=== PATIENT | female | born 1995 | race Caucasian/White ===

== ENCOUNTER 2020-12-06 06:56 | Day surgery (SDC) | payer OTHER ==
[~2020-12-06] VITALS: Ht 154.9 cm; Wt 63.5 kg
--- NOTE | ~2020-12-06 | O ---
[facility] [place] [address] OPERATIVE REPORT Name: LEIGH DAMIAN [place] #: [place] [facility] [place]#: [id number] Admission: 12/06/20 Attend Phys: Martín Swenson MD Discharge: 12/06/20 Date of : 89 Report #: [id number] THIS REPORT FOR: cc: ALEXIS - No family physician/PCP ALEXIS - No family physician/PCP Martín Swenson MD ~ DATE OF SERVICE: 12/06/2020 PREOPERATIVE DIAGNOSES: Nasal septal deformity and turbinate hypertrophy. POSTOPERATIVE DIAGNOSES: Nasal septal deformity and turbinate hypertrophy. PROCEDURES: Nasal septal reconstruction, submucous resection of inferior turbinates with outfracturing. SURGEON: Martín Swenson MD ANESTHESIA: General LMA. INDICATIONS: See H and P. TECHNIQUE: After obtaining the patient's consent, she was brought to the operating suite, appropriate time out was performed. General LMA anesthesia was obtained. The bed was turned 90 degrees. She was placed in a slight head up position. The nose was prepped and draped in the usual sterile fashion. A 6 mL of 1% Xylocaine and 1:100,000 epinephrine was injected in each side of the septum. Later in the case, an additional 2 mL was infiltrated into the submucosal component of each inferior turbinate for a total of 10 of local use. Cottonoids with Afrin were placed on each side of the nose for vasoconstriction of the inferior middle turbinates. A right-sided hemitransfixion was made and elevated submucosal flap on the left side to expose the quadrangular cartilage as well as the anterior portion of the vomer in perpendicular plate. With the substantial deviation of the quadrangular cartilage, I harvested a large piece of quadrangular cartilage, scoring the area with a [place] blade then back elevating the right side with a mucoperichondrial flap. Enough was left anteriorly and superiorly for adequate tip support. The above-mentioned cartilage was then removed. The bony cartilaginous junction was disarticulated superiorly. A small amount of cartilage was off the maxillary crest on the left side, and this was dissected away with use of a D knife and elevated out of the maxillary crest. Small deviations were noted on the inferior portion of the vomer anteriorly, which were removed with Silvino forceps. During dissection, there was a tear in the mucosa on the right side inferiorly, but there were no mucosal rents on the left at all. Having straighten the nasal septum, previously harvested cartilage was trimmed, morselized and placed back between the septal folds in the mid portion. [facility] [address] [place] [address] OPERATIVE REPORT Name: LEIGH DAMIAN Room #: [place] [facility] [place] M.R.#: [id number] Admission: 12/06/20 Attend Phys: Martín Swenson MD Discharge: 12/06/20 Date of : 89 Report #: [id number] The hemitransfixion incision was closed with simple interrupted 4-0 chromic suture. Each inferior turbinate was medialized with a [place]. The above local anesthetic was infiltrated, care being made not to inject intravascularly. A small stab incision was made in the anterior face of the inferior turbinate on each side, and the submucosal tunnels were created on the medial and medial inferior surface of the anterior inferior turbinates. A 2.9 microdebrider blade was then used to submucosally reduce each area of the turbinate. Each inferior turbinate was then outfractured with an elevator. Owens splints were placed on each side and secured with 3-0 Prolene suture. The nasopharynx was suctioned free of secretions. She was then turned back over to anesthesia where she was lightened, extubated and taken to recovery room in stable condition. Estimated blood loss was 10 mL. By: [id number] Martín Swenson MD /michelle
[~2020-12-06 06:56] MED LIST: FOLIC ACID1 MG PO; MULTI VITAMIN1 EACH PO
[2020-12-06 07:05] VITALS: BP 121/80
--- NOTE | 2020-12-06 07:23 | H ---
[facility] [place] [address] HISTORY AND PHYSICAL Name: LEIGH DAMIAN Room #: 150-3 [facility] M.R.#: [id number] Admission: 12/06/20 Attend Phys: Martín Swenson MD Discharge: Date of : 89 Report #: [id number] THIS REPORT FOR: cc: ALEXIS - No family physician/PCP FAM - No family physician/PCP Martín Swenson MD ~ DATE OF SERVICE: 12/06/2020 Surgery will be on 12/06/2020 CHIEF COMPLAINT: Nasal airway obstruction. HISTORY OF PRESENT ILLNESS: Patient is a 25-year-old female originally seen in 10/2020 with a complaint at that time of bilateral intermittent nasal congestion and worsening nasal airway obstruction at night. Physical examination demonstrated evidence of cyclical turbinate hypertrophy and a deviated nasal septum. Given these findings, she was deemed a good candidate to consider surgical intervention. I discussed the options of surgical intervention for including but not limited to medicinal therapy and staying on nasal steroid sprays or surgical interventions include a septoplasty and turbinate reduction surgery. Risks were reviewed as noted in the office chart and were discussed including but not limited to anesthesia, bleeding, infection, scarring, lack of clinical improvement septal perforation, septal or nasal infection, ____, lack or change in sense of smell. At this point, she agrees to proceed forward. MEDICATIONS ON ADMISSION: None. ALLERGIES TO MEDICATIONS: None. PAST MEDICAL AND SURGICAL HISTORY: Notable for adenotonsillectomy and a section. REVIEW OF SYSTEMS: Otherwise, negative for any GI, , cardiovascular, pulmonary, or hematopoietic issues. PHYSICAL EXAMINATION: VITAL SIGNS: Height 5 feet 1, weight 140 pounds. HEENT: As outlined above from the nose in the HPI. Oral cavity and pharynx are unremarkable aside from surgically absent tonsils. Neck palpate is unremarkable. Chest is clear. CV is regular rhythm. [facility] [address] [place] [address] HISTORY AND PHYSICAL Name: LEIGH DAMIAN Room #: [address] [place] [address]..#: [id number] Admission: 12/06/20 Attend Phys: Martín Swenson MD Discharge: Date of : 89 Report #: [id number] ASSESSMENT: History of nasal airway obstruction. Plan will be for the above-mentioned surgery. <ELECTRONICALLY SIGNED> By: Martín Swenson MD 12/06/20 0723 [id number] Martín Swenson MD /nt
[2020-12-06 11:28] VITALS: BP 121/80
== END 2020-12-06 12:15 | disposition home or self-care (01) ==
LOC: TBA 06:56 → OR 06:56 → TBA 06:57 → OR 09:14
PROVIDERS: ATTEND Otolaryngology
DX: J34.2 Deviated nasal septum (principal); J34.3 Hypertrophy of nasal turbinates; Z98.890 Other specified postprocedural states; Z79.899 Other long term (current) drug therapy; Z20.822 Contact with and (suspected) exposure to COVID-19; Z88.6 Allergy status to analgesic agent
CPT/HCPCS: 50010; 50101; 50386; 50398; 51634; 56526; 56528; 58863; 62110; 62900; 64037; 70005